=== PATIENT | female | born 1970 | race Caucasian/White ===

== ENCOUNTER → 2018-01-01 | Outpatient (CLI) | payer BC ==
--- NOTE | 2018-01-02 08:21 | XR ---
EXAMINATION TYPE: XR foot complete LT DATE OF EXAM: 01/01/2018 COMPARISON: NONE HISTORY: Pain TECHNIQUE: Three views are submitted. FINDINGS: The osseous structures are intact and there is hypertrophic change and narrowing of the first MTP bev nt. There is no acute fracture or dislocation. IMPRESSION: 1. No acute fracture or dislocation. If symptoms persist, follow-up exam in 7 to 10 days could be ob tained.
== END | disposition home or self-care (01) ==
LOC: RADXRMAIN 16:18
PROVIDERS: ATTEND Family Medicine
DX: M79.672 Pain in left foot (principal)

== ENCOUNTER → 2018-11-25 | Outpatient (CLI) | payer BC ==
--- NOTE | 2018-11-25 08:15 | US ---
EXAMINATION TYPE: US gallbladder DATE OF EXAM: 11/25/2018 COMPARISON: NONE CLINICAL HISTORY: 48-year-old female R10.11 RUQ Abdominal Pain. 3 episodes of abdomen/back pain and n ausea in the past month, patient states symptoms only occur in the afternoon TECHNIQUE: Multiple sonographic images of the right upper quadrant are obtained. FINDINGS: EXAM MEASUREMENTS: Liver Length: 15.7 cm Gallbladder Wall: 0.2 cm CBD: 0.4 cm Right Kidney: 10.0 x 3.9 x 4.9 cm Pancreas: visualized portions wnl, tail and head limited by overlying midline bowel gas Liver: 1.0cm cystic area seen, either a small liver cyst vs. exophytic right kidney cyst . Otherwis e, no focal liver lesion. Gallbladder: Multiple shadowing calculi partially fill the gallbladder lumen. No abnormal distention , surrounding fluid, or wall thickening. Evidence for sonographic Anglin's sign: no CBD: wnl Right Kidney: 2.6 x 2.2 x 2.6cm cyst mid pole . No hydronephrosis. IMPRESSION: 1. Cholelithiasis. No ancillary findings of acute cholecystitis at this time. 2. No biliary ductal dilatation.
== END | disposition home or self-care (01) ==
LOC: RADUSWWP 07:04
PROVIDERS: ATTEND Family Medicine
DX: K80.20 Calculus of gallbladder without cholecystitis without obstruction (principal)
CPT/HCPCS: 76705

== ENCOUNTER → 2019-03-30 | Outpatient (CLI) | payer BC, OTHER ==
[2019-03-30 11:45] LABS: HCT 40.5 % (34.0-46.0); HGB 13.1 gm/dL (11.4-16.0); MCH 30.8 pg (25.0-35.0); MCHC 32.4 g/dL (31.0-37.0); MCV 95.2 fL (80.0-100.0); Mean Platelet Volume 8.7; Platelet Count 200 k/uL (150-450); RBC 4.25 m/uL (3.80-5.40); RDW 14.7 % (11.5-15.5); WBC 6.2 k/uL (3.8-10.6)
== END | disposition home or self-care (01) ==
LOC: LABPAT 10:51
PROVIDERS: ATTEND Surgery Plastic and Reconstructive Surgery
DX: Z01.812 Encounter for preprocedural laboratory examination (principal)
CPT/HCPCS: 36415; 85027

== ENCOUNTER 2019-04-02 06:25 | Day surgery (SDC) | payer BC, OTHER ==
[2019-03-29 13:56] VITALS: BMI 25.8
[~2019-04-02 06:25] MED LIST: DEXAMETHASONE SOD PHOSPHATE 10 MG/ML 1 ML VIAL IV ONE; HEPARIN SODIUM,PORCINE 5,000 UNIT/ML 1 ML VIAL SQ ONE; LACTATED RINGERS 1,000 ML IV SCH; MIDAZOLAM 2 MG/2 ML VIAL IV PRN; ONDANSETRON 4 MG/2 ML VIAL IVP ONE
[2019-04-02] MEDS ORDERED: LIDOCAINE 1% 20 ML VIAL (10MG/ML) FOR IV START IV ONE (07:07)
[2019-04-02] MEDS ORDERED: SCOPOLAMINE 1.5MG/72HR PATCH TRANSDERM ONE (07:13)
--- NOTE | 2019-04-02 07:36 | P.GSHP ---
History of Present Illness H&P Date: 04/02/19 CHIEF COMPLAINT: Cholecystitis HISTORY OF PRESENT ILLNESS: The patient is a 48-year-old female who presents with history of epigastric including right upper quadrant abdominal pain. She underwent diagnostic studies for her gallbladder. Separately her clinical picture was consistent with cholecystitis. Now she presents for surgical intervention. PAST MEDICAL HISTORY: Please see list PAST SURGICAL HISTORY: Please see list MEDICATIONS: Please see list ALLERGIES: Please see list SOCIAL HISTORY: Please see list FAMILY HISTORY: Pertinent for gallbladder disease REVIEW OF ORGAN SYSTEMS: CONSTITUTIONAL: No reports of fevers or chills. HEENT: Denies any troubles with the vision or hearing. PHYSICAL EXAM: VITAL SIGNS: Afebrile vital signs stable GENERAL: Well-developed pleasant in no acute distress. HEENT: No scleral icterus. Extraocular movements grossly intact. Moist buccal mucosa. NECK: Supple without lymphadenopathy. CHEST: Unlabored respirations. Equal bilateral excursions. CARDIOVASCULAR: Regular rate regular rhythm rhythm. Distal 2+ pulses. ABDOMEN: Soft, nondistended. Tender along the epigastrium and right upper quadrant. MUSCULOSKELETAL: No clubbing, cyanosis, or edema. NEURO: Cranial nerves II to XII within normal limits. No focal or lateralizing signs. PSYCH: Alert and oriented to person, place and time. SKIN: Well-perfused good skin turgor. ASSESSMENT: 1. Epigastric and right upper quadrant abdominal pain 2. Chronic cholecystitis 3. Symptomatic gallstones. PLAN: 1. Will need a robotic cholecystectomy possible open. Benefits and risks were described. 2. Heparin for DVT prophylaxis 5000 units. 3. Antibiotic prophylaxis. Past Medical History Past Medical History: Asthma Additional Past Medical History / Comment(s): States asthma may have been allergy to pet- no problems now., states occasional gall bladder "attacks" History of Any Multi-Drug Resistant Organisms: None Reported Past Surgical History: Breast Surgery Additional Past Surgical History / Comment(s): Exp lap (endometriosis), breast lumpectomy Past Anesthesia/Blood Transfusion Reactions: Postoperative Nausea & Vomiting (PONV) Past Psychological History: Anxiety, Depression Smoking Status: Never smoker Past Alcohol Use History: None Reported Past Drug Use History: None Reported - Past Family History Mother Family Medical History: No Reported History Medications and Allergies Home Medications Medication Instructions Recorded Confirmed Type Venlafaxine HCl [Effexor XR] 150 mg PO DAILY 03/29/19 04/02/19 History Allergies Allergy/AdvReac Type Severity Reaction Status Date / Time pcn AdvReac Rash/Hives Uncoded 03/29/19 13:32 Surgical - Exam Vital Signs Temp Pulse Resp BP Pulse Ox 98.2 F 75 16 109/71 97 04/02/19 06:55 04/02/19 06:55 04/02/19 06:55 04/02/19 06:55 04/02/19 06:55
[2019-04-02] MEDS ORDERED: INDOCYANINE GREEN 25 MG VIAL IV STA (07:37)
[2019-04-02] MEDS ORDERED: fentaNYL (PF) 50 MCG/ML 2 ML AMP ONE (07:39)
[2019-04-02] MEDS ORDERED: ROCURONIUM BROMIDE 10 MG/ML 10 ML VIAL IV ONE (07:39)
[2019-04-02] MEDS ORDERED: NEOSTIGMINE 1 MG/ML 10 ML VIAL ONE (07:39)
[2019-04-02] MEDS ORDERED: LIDOCAINE 1% INJ 10MG/ML (20 ML MDV) ONE (07:39)
[2019-04-02] MEDS ORDERED: MIDAZOLAM 2 MG/2 ML VIAL ONE (07:39)
[2019-04-02] MEDS ORDERED: INDOCYANINE GREEN 25 MG VIAL IV ONE (07:39)
[2019-04-02] MEDS ORDERED: PROPOFOL 10 MG/ML 20 ML VIAL IV ONE (07:39)
[2019-04-02] MEDS ORDERED: GLYCOPYRROLATE 0.2 MG/ML 2 ML VIAL ONE (07:39)
[2019-04-02 07:48] LABS: ALT 26 U/L (9-52); AST 22 U/L (14-36); African American GFR (CKD) >90 (>60 ml/min/1.73 sqM); Albumin 4.5 g/dL (3.5-5.0); Alkaline Phosphatase 58 U/L (38-126); Anion Gap 8 mmol/L; Blood Urea Nitrogen 14 mg/dL (7-17); Calcium 9.5 mg/dL (8.4-10.2); Carbon Dioxide 27 mmol/L (22-30); Chloride 107 mmol/L (98-107); Glucose 97 mg/dL (74-99); Sodium 142 mmol/L (137-145); Total Bilirubin 0.4 mg/dL (0.2-1.3); Total Protein 7.5 g/dL (6.3-8.2)
[2019-04-02] MEDS ORDERED: LIDOCAINE 1%-EPI 1:100,000 30 ML VIAL SQ ONE ×2 (07:56→08:15)
[2019-04-02] MEDS ORDERED: DEXAMETHASONE SOD PHOSPHATE 10 MG/ML 1 ML VIAL IM PRN (08:56)
--- NOTE | 2019-04-02 09:02 | P.OP ---
Date of Procedure: 04/02/19 Description of Procedure: SURGEON: SHANTEL LEON MD PREOPERATIVE DIAGNOSES: 1. Right upper quadrant abdominal pain 2. Chronic cholecystitis 3. Gallstones 4. Depressive disorder POSTOPERATIVE DIAGNOSES: 1. Right upper quadrant abdominal pain 2. Chronic cholecystitis 3. Gallstones 4. Depressive disorder OPERATION: Robotic-assisted da Kathy Xi laparoscopic cholecystectomy, multiport with FIREFLY ESTIMATED BLOOD LOSS: 5 mL. SPECIMENS REMOVED: Gallbladder. COMPLICATIONS: None. OPERATIVE FINDINGS: 1. Chronic cholecystitis 2. Bulbous cystic appearance of infundibulum and cystic duct identified via firefly 3. Console time 7 minutes INDICATIONS: The patient is a 48-year-old female who presents with cholelcystitis. Surgical intervention with a laparoscopic cholecystectomy was described at length including injury to the biliary tree, bleeding, infection, need for further surgery. Informed consent was obtained. Robotic assisted laparoscopic approach was described. Benefits and risks of the procedure including but not limited to bleeding, infection, injury to the biliary tree was described. Informed consent was obtained. DESCRIPTION OF PROCEDURE: Patient was brought to the operating room, placed in supine position. After general induction, the abdomen had been prepped and draped in standard sterile fashion. The robotic da Kathy XI system was primed. After a timeout protocol was performed, the patient had been prepped and draped in standard sterile fashion. The patient was injected with indocyanine green. A 5 mm 0 degrees laparoscopic trocar entry was performed along the left upper quadrant. The abdomen insufflated to 15 mmHg pressure which was tolerated well. Diagnostic laparoscopy demonstrated no injury to bowel viscera or mesentery. The liver surface was unremarkable. Next, two 8 mm robotic ports were placed along the right upper abdomen. The camera 8-mm port was maintained along the epigastrium. Another 8 mm port was placed along the left upper abdominal wall after exchanging the 5 mm port. Please note that the ports were placed at least 10 to 15 cm away from the target anatomy of the gallbladder. The robot was docked along the left lateral abdomen. The patient was repositioned in reverse Trendelenburg position. Using a grasper for arm 3, a grasper for arm 4, including hook cautery for arm 1, the robotic system was docked and primed as described. Instruments were interchanged by the clinical assistant professor including hook cautery, Bovie cautery and clip appliers. I had sat at the console. The gallbladder fundus was retracted over the dome of the liver. Initial attention was brought to the infundibulum which was gently retracted in the inferior lateral approach. Using a grasper, the cystic duct including the cystic artery was carefully skeletonized. FIREFLY was used to identify the cystic artery and cystic structures. A critical view of safety was obtained. Large PLASTIC clips were used throughout the entire case. Using a clip secondary special education teacher 2 clips were placed proximally, and 1 clip was placed between the infundibulum and cystic duct and divided using cautery. Next, the cystic artery was similarly clipped and cauterized. Electro-Bovie cautery was used to remove the gallbladder from the hepatic fossa. Hemostasis was checked and found to be adequate. The robot was undocked. I re-scrubbed into the case. Using a 10 mm Endo Catch bag via the left upper quadrant incision, the specimen was removed from the abdominal cavity. All pneumoperitoneum instruments were evacuated from the abdominal cavity. The incisions were reapproximated using 4-0 Monocryl in an interrupted subcuticular fashion. Fascial defects were less than 8 mm in size. Please note along the trocar sites, local anesthetic was placed as a field block prior to insertion of all instruments. Liquid glue was applied to the skin. At the end of the procedure needle, sponge, and instrument count had been verified correct by the solar installer technician. The patient was transferred to postanesthesia care unit in stable condition. Intraoperative films were shared with the patient's family who were very pleased with the level of care. Plan - Discharge Summary Discharge Rx Participant: Yes New Discharge Prescriptions: New Ibuprofen [Motrin] 600 mg PO Q8HR PRN #30 tab PRN Reason: Pain Acetaminophen [Tylenol] 325 mg PO Q4H #30 tab No Action Venlafaxine HCl [Effexor XR] 150 mg PO DAILY Discharge Medication List Venlafaxine HCl [Effexor XR] 150 mg PO DAILY 03/29/19 [History] Acetaminophen [Tylenol] 325 mg PO Q4H #30 tab 04/02/19 [Rx] Ibuprofen [Motrin] 600 mg PO Q8HR PRN #30 tab 04/02/19 [Rx] Follow up Appointment(s)/Referral(s): Shantel Leon MD [STAFF PHYSICIAN] - 04/06/19 Patient Instructions/Handouts: *Surgery [facility] - Scopalamine Patch Instructions, Low Fat Diet (GEN), Laparoscopic Cholecystectomy (GEN) Activity/Diet/Wound Care/Special Instructions: No lifting over 10 pounds and 10 days until 04/12/2019. May shower. No bath tub soaks until 04/12/2019. Low-fat diet advised over the weekend. Follow up as directed. May also take Aleve for pain. Discharge Disposition: HOME SELF-CARE
[2019-04-02] MEDS ORDERED: diphenhydrAMINE 50 MG/ML 1 ML VIAL IVP ONE (09:03)
[2019-04-02] MEDS: HYDROmorphone 0.5 MG/0.5 ML SYRINGE IVP PRN ×4 (09:03→09:39)
[2019-04-02 09:09] VITALS: TEMP 97.2
[2019-04-02 09:48] VITALS: RESP 17
[2019-04-02] MEDS ORDERED: HYDROcodone/APAP 7.5-325MG 1 EACH TAB PO ONE (09:57)
[2019-04-02 10:01] VITALS: BP 104/70; PULSE 83
== END 2019-04-02 10:54 | disposition home or self-care (01) ==
LOC: OR 06:25
PROVIDERS: ATTEND Surgery Plastic and Reconstructive Surgery
DX: K80.10 Calculus of gallbladder with chronic cholecystitis without obstruction (principal); F32.9 Major depressive disorder, single episode, unspecified; J45.909 Unspecified asthma, uncomplicated; F41.9 Anxiety disorder, unspecified; Z98.890 Other specified postprocedural states; Z88.0 Allergy status to penicillin; Z79.899 Other long term (current) drug therapy
CPT/HCPCS: 47562; 81025; 88304; 80053; J2250; J1200; J1644; J1100; J2710; J0690; J2405; J2001; J3010; J2704; J1170

== ENCOUNTER 2020-02-09 15:01 | Emergency (ER) | payer BC, OTHER ==
[2020-02-09 15:12] VITALS: RESP 18
[2020-02-09] MEDS ORDERED: HYDROcodone/APAP 5-325MG 1 EACH TAB PO STA (15:42)
[2020-02-09] MEDS ORDERED: DIPH,PERTUS(ACELL)TETVAC-LF 0.5 ML VIAL IM ONE (15:42)
[2020-02-09] MEDS ORDERED: GELATIN SPONGE,ABSORB (SMALL) 1 EACH SPONGE TOPICAL STA (15:42)
--- NOTE | 2020-02-09 16:00 | ED ---
General Adult HPI - General Chief complaint: Wound/Laceration Stated complaint: Finger injury Time Seen by Provider: 02/09/20 15:23 Source: patient, EMS, RN notes reviewed Mode of arrival: EMS Limitations: no limitations - History of Present Illness Initial comments: 49-year-old female presents to the emergency department for laceration of the right fourth digit. 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 Patient denies any other injuries. Patient is up-to-date on tetanus.Patient has no other complaints at this time including shortness of breath, chest pain, abdominal pain, nausea or vomiting, headache, or visual changes. - Related Data Home Medications Medication Instructions Recorded Confirmed Venlafaxine HCl [Effexor XR] 150 mg PO DAILY 03/29/19 04/02/19 Previous Rx's Medication Instructions Recorded Acetaminophen [Tylenol] 325 mg PO Q4H #30 tab 04/02/19 Ibuprofen [Motrin] 600 mg PO Q8HR PRN #30 tab 04/02/19 Allergies Allergy/AdvReac Type Severity Reaction Status Date / Time Penicillins Allergy Rash/Hives Verified 04/02/19 09:49 Review of Systems ROS Statement: Those systems with pertinent positive or pertinent negative responses have been documented in the HPI. ROS Other: All systems not noted in ROS Statement are negative. Past Medical History Past Medical History: Asthma Additional Past Medical History / Comment(s): States asthma may have been allergy to pet- no problems now., states occasional gall bladder "attacks" History of Any Multi-Drug Resistant Organisms: None Reported Past Surgical History: Breast Surgery, Cholecystectomy Additional Past Surgical History / Comment(s): Exp lap (endometriosis), breast lumpectomy Past Anesthesia/Blood Transfusion Reactions: Postoperative Nausea & Vomiting (PONV) Past Psychological History: Anxiety, Depression Smoking Status: Never smoker Past Alcohol Use History: None Reported Past Drug Use History: None Reported - Past Family History Mother Family Medical History: No Reported History General Exam Limitations: no limitations General appearance: alert, in no apparent distress Head exam: Present: atraumatic, normocephalic, normal inspection Eye exam: Present: normal appearance, PERRL, EOMI. Absent: scleral icterus, conjunctival injection, periorbital swelling ENT exam: Present: normal exam, mucous membranes moist Neck exam: Present: normal inspection, full ROM. Absent: tenderness, meningismus, lymphadenopathy Respiratory exam: Present: normal lung sounds bilaterally. Absent: respiratory distress, wheezes, rales, rhonchi, stridor Cardiovascular Exam: Present: regular rate, normal rhythm, normal heart sounds. Absent: systolic murmur, diastolic murmur, rubs, gallop, clicks Extremities exam: Present: full ROM (4 range of motion of the right fourth digit), normal capillary refill (Capillary refill is 2 seconds, radial pulse 2+ in the right upper extremity.), other (Patient has a laceration avulsion type injury to the fingertip of the right fourth digit.). Absent: tenderness, pedal edema, joint swelling, calf tenderness Neurological exam: Present: alert Course Vital Signs 02/09/20 15:08 Temperature 99.0 F Pulse Rate 79 Respiratory 18 Rate Blood Pressure 136/76 O2 Sat by Pulse 100 Oximetry Medical Decision Making - Medical Decision Making X-ray of the right fourth digit showed a normal exam. I do not see any bone involvement. Area was cleaned with saline pressure irrigation. Gelfoam was applied. Steri-Strips were applied to this to keep it in place. Patient will follow up with primary care in 1-2 days for a recheck. She'll return here for any worsening symptoms. Disposition Clinical Impression: Avulsion of skin of finger Disposition: HOME SELF-CARE Condition: Good Instructions (If sedation given, give patient instructions): Laceration (ED) Additional Instructions: Please soak Gelfoam if it does not fall off the next 2-3 days. Please follow-up with primary care in 1-2 days for recheck. Return if you have any other worsening symptoms. Is patient prescribed a controlled substance at d/c from ED?: No Referrals: Bandar Fischer DO [Primary Care Provider] - 1-2 days Time of Disposition: 16:15
--- NOTE | 2020-02-09 16:06 | XR ---
Fourth digit right hand HISTORY: Laceration 3 views of the fourth digit right hand Bone mineralization, joint spaces and alignment are maintained. No radiographic foreign body. IMPRESSION: Normal fourth digit.
[2020-02-09 16:29] VITALS: BP 140/77; PULSE 75; TEMP 97.5
== END 2020-02-09 16:29 | disposition home or self-care (01) ==
LOC: EC 15:01
DX: S61.214A Laceration without foreign body of right ring finger without damage to nail, initial encounter (principal); F32.9 Major depressive disorder, single episode, unspecified; Z79.899 Other long term (current) drug therapy; Z88.0 Allergy status to penicillin; Z23 Encounter for immunization; W27.4XXA Contact with kitchen utensil, initial encounter; Y93.G3 Activity, cooking and baking; Y92.009 Unspecified place in unspecified non-institutional (private) residence as the place of occurrence of the external cause
CPT/HCPCS: 90471; 90715; 99283

== ENCOUNTER → 2022-01-11 | Outpatient (CLI) | payer OTHER ==
--- NOTE | 2022-01-15 15:01 | MM ---
Reason for Exam: Screening (asymptomatic). Last mammogram was performed 8 year(s) and 7 month(s) ago. Patient History: Menarche at age 13. First Full-Term at age 36. Late child-bearing (after 30). Hormonal Contraceptives for 3 years from age 25 until age 28. Maternal grandmother had breast cancer. Film Views: Bilateral CC views were taken. Bilateral MLO views were taken. Prior Study Comparison: 10/02/2009 Bilateral Screening Mammogram, [facility]. 10/29/2011 Bilateral Screening Mammogram, [facility]. 06/08/2013 Bilateral Screening Mammogram, [facility]. Tissue Density: The breast tissue is heterogeneously dense. This may lower the sensitivity of mammography. Findings: Analyzed By CAD. Central posterior focal asymmetries in the right breast. New oval 7mm nodule 8 o'clock left breast. Overall Assessment: Incomplete: need additional imaging evaluation, BI-RAD 0 Management: Special View Mammogram of both breasts. [facility] will attempt to contact patient to return for supplemental views.
== END | disposition home or self-care (01) ==
LOC: RADMAMWWP 08:27
PROVIDERS: ATTEND Family Medicine
DX: Z12.31 Encounter for screening mammogram for malignant neoplasm of breast (principal)
CPT/HCPCS: 77063; 77067

== ENCOUNTER → 2022-01-24 | Outpatient (CLI) | payer OTHER ==
--- NOTE | 2022-01-30 17:06 | USB ---
Reason for Exam: Additional evaluation requested from abnormal screening. Last screening mammogram was performed less than 1 month ago. Patient History: Menarche at age 13. First Full-Term at age 36. Late child-bearing (after 30). Hormonal Contraceptives for 3 years from age 25 until age 28. Maternal grandmother had breast cancer at or over age 50. Risk Values: Desire 5 year model risk: 1.3%. NCI Lifetime model risk: 12.1%. Prior Study Comparison: 10/29/2011 Bilateral Screening Mammogram, [facility]. 06/08/2013 Bilateral Screening Mammogram, [facility]. 01/11/2022 Bilateral MG 3D screening mammo w/cad, [facility]. Tissue Density: The breast tissue is heterogeneously dense. This may lower the sensitivity of mammography. MANY MOLES AND SKIN TAGS...OVER BOTH BREASTS AND AXILLA. Findings: Mammogram No persistent suspicious spiculated or lobular masses, clusters of microcalcifications, architectural distortion are evident on the right compression views. Medial and lateral views bilaterally appear unremarkable.. Findings: There is a 0.6 x 0.6 x 0.5 cm hypoechoic area with internal echogenicity which appears taller than wide. This is at the 9:00 position zone A. Ultrasound-guided core biopsy is recommended. Overall Assessment: Suspicious, BI-RAD 4 Assessment: MG 3D work up w/cad [facility] - Bilateral: Probably benign, BI-RAD 3 - Right. US breast workup limited LT - Bilateral: Suspicious, BI-RAD 4 - Left. Management: Ultrasound Core Biopsy of the left breast. A clinical breast exam by your physician is recommended on an annual basis and results should be correlated with mammographic findings. Results were given to the patient verbally at the time of exam. Electronically signed and approved by: Jack Soto D.O. Radiologis
== END | disposition home or self-care (01) ==
LOC: RADMAMWWP 08:53
PROVIDERS: ATTEND Family Medicine
DX: R92.8 Other abnormal and inconclusive findings on diagnostic imaging of breast (principal)
CPT/HCPCS: 77062; 77066

== ENCOUNTER → 2022-02-13 | Day surgery (SDC) | payer OTHER ==
--- NOTE | 2022-02-21 11:55 | USB ---
Reason for Exam: Post Procedure Mammogram. Last screening mammogram was performed 1 month(s) ago. Patient History: Menarche at age 13. First Full-Term at age 36. Late child-bearing (after 30). Hormonal Contraceptives for 3 years from age 25 until age 28. Maternal grandmother had breast cancer at or over age 50. Risk Values: Desire 5 year model risk: 1.3%. NCI Lifetime model risk: 12.1%. Prior Study Comparison: 06/08/2013 Bilateral Screening Mammogram, [facility]. 01/11/2022 Bilateral MG 3D screening mammo w/cad, [facility]. 01/24/2022 Bilateral MG 3D work up w/cad [facility], [facility]. Tissue Density: Left: The breast tissue is heterogeneously dense. This may lower the sensitivity of mammography. Pathology Description: Location: 9 o'clock, upper inner quadrant. Marker Left Behind. Needle Type: Celero Cores: 2 Gauge: 12 Complications: Other After procedure patient felt nauseous and dizzy, she was given ice pack for neck and offered food and drink but she declined. Tech did not let patient leave until she felt stable. The procedure of ultrasound guided core biopsy was explained to the patient. Benefits, alternatives, and risks were discussed. An informed consent was then obtained. The patient was placed in supine positioning for imaging and for the procedure. Preprocedure ultrasound redemonstrates an oval 8 mm heterogeneous slightly hypoechoic lesion at 9:00 position in the left breast. The overlying skin was prepped and draped in usual sterile fashion. Lidocaine is used as anesthetic into the skin and subcutaneous tissue up to area of concern in the left breast. Under ultrasound guidance, a vacuum assisted biopsy gun device was used to obtain 2 core samples. Following this, a biopsy clip was left at level of the lesion. Lesion was not well seen after sampling. The patient tolerated the procedure well without any immediate complication. The patient was kept in the radiology department for short stay after the procedure and then discharged home in stable condition. Post procedure mammogram shows successful deployment of clip along the anterior aspect of the suspicious lesion on mammogram. Impression: Successful, uncomplicated ultrasound guided core biopsy of area of concern in the left breast, full pathology results to follow. Low to intermediate index of suspicion. Suspect debris filled cyst. Pathology Results: Result: Benign, Fibroadenoma. LEFT BREAST, NINE O'CLOCK, ULTRASOUND GUIDED CORE BIOPSY: Fibroadenoma. Overall Assessment: Benign Assessment: MG diagnostic mammo LT wo CAD. - Left: Benign, BI-RAD 2. Management: Diagnostic Mammogram of the left breast in 6 months. Electronically signed and approved by: Saul Powers M.D.
== END ==
LOC: RADUSWWP 10:13
PROVIDERS: ATTEND Student in an Organized Health Care Education/Training Program
DX: D24.2 Benign neoplasm of left breast (principal)
CPT/HCPCS: 88305; 77065; 19083; A4648

== ENCOUNTER → 2022-09-11 | Outpatient (CLI) | payer OTHER ==
--- NOTE | 2022-09-11 16:08 | MM ---
Reason for Exam: Follow-up at short interval from prior study. Last screening mammogram was performed 8 month(s) ago. Patient History: Menarche at age 13. First Full-Term at age 36. Late child-bearing (after 30). Hormonal Contraceptives for 3 years from age 25 until age 28. 02/13/2022, Benign US biopsy breast VAD LT on the left side. Maternal grandmother had breast cancer at or over age 50. Risk Values: Desire 5 year model risk: 1.6%. NCI Lifetime model risk: 14.2%. Prior Study Comparison: 01/11/2022 Bilateral MG 3D screening mammo w/cad, [facility]. 01/24/2022 Bilateral MG 3D work up w/cad [facility], [facility]. 02/13/2022 Left MG diagnostic mammo LT wo CAD., [facility]. Tissue Density: Left: The breast tissue is heterogeneously dense. This may lower the sensitivity of mammography. Findings: Analyzed By CAD. The core biopsy markers within the left breast. Nodular density at the level of the core marker appears stable. Adjacent is a similar nodular density not identified previously. Additional workup with rolled views and ultrasound is recommended. Overall Assessment: Incomplete: need additional imaging evaluation, BI-RAD 0 Management: Diagnostic Breast Ultrasound of the left breast. A clinical breast exam by your physician is recommended on an annual basis and results should be correlated with mammographic findings. This exam should not preclude additional follow-up of suspicious palpable abnormalities. Results were given to the patient verbally at the time of exam. Electronically signed and approved by: Jack Soto D.O. Radiologis
--- NOTE | 2022-09-11 16:11 | USB ---
Reason for Exam: Additional evaluation requested from prior study. Patient History: Menarche at age 13. First Full-Term at age 36. Late child-bearing (after 30). Hormonal Contraceptives for 3 years from age 25 until age 28. 02/13/2022, Benign US biopsy breast VAD LT on the left side. Maternal grandmother had breast cancer at or over age 50. Risk Values: Desire 5 year model risk: 1.6%. NCI Lifetime model risk: 14.2%. Technique: Method: Targeted. Prior Study Comparison: 01/11/2022 Bilateral MG 3D screening mammo w/cad, [facility]. 01/24/2022 Bilateral MG 3D work up w/cad [facility], [facility]. 02/13/2022 Left MG diagnostic mammo LT wo CAD., [facility]. Findings: The upper inner quadrant of the left breast and the retroareolar of the left breast were scanned. Patient's nodular density which appears to be the previous biopsy site is again identified. Directly adjacent is a hypoechoic area which contains echogenic foci. This appears to be the patient's [employer]drom[employer]. Overall Assessment: Benign, BI-RAD 2 Management: Screening Mammogram of both breasts in 6 months. A clinical breast exam by your physician is recommended on an annual basis and results should be correlated with mammographic findings. This exam should not preclude additional follow-up of suspicious palpable abnormalities. Results were given to the patient verbally at the time of exam. Electronically signed and approved by: Jack Soto D.O. Radiologis
== END | disposition home or self-care (01) ==
LOC: RADMAMWWP 15:04
PROVIDERS: ATTEND Family Medicine
DX: D24.2 Benign neoplasm of left breast (principal); Z80.3 Family history of malignant neoplasm of breast
CPT/HCPCS: 77065

== ENCOUNTER → 2024-02-11 | Outpatient (CLI) | payer BC, OTHER ==
--- NOTE | 2024-02-12 14:01 | MM ---
Reason for Exam: Screening (asymptomatic). Last mammogram was performed 2 year(s) and 1 month(s) ago. Patient History: Menarche at age 13. First Full-Term at age 36. Late child-bearing (after 31). Postmenopausal. Hormonal Contraceptives for 3 years from age 25 until age 28. 02/13/2022, Benign US biopsy breast VAD LT on the left side. Maternal grandmother had breast cancer at or over age 50. Last menstrual period: 01/28/2024 Risk Values: Desire 5 year model risk: 1.7%. NCI Lifetime model risk: 13.7%. Prior Study Comparison: 06/08/2013 Bilateral Screening Mammogram, [facility]. 01/11/2022 Bilateral MG 3D screening mammo w/cad, [facility]. 01/24/2022 Bilateral MG 3D work up w/cad [facility], [facility]. 02/13/2022 Left MG diagnostic mammo LT wo CAD., [facility]. 09/11/2022 Left MG diagnostic mammo LT w CAD, [facility]. Tissue Density: The breasts are heterogeneously dense, which may obscure small masses. Findings: Analyzed By CAD. There is no suspicious group of microcalcifications or new suspicious mass in either breast. Overall Assessment: Benign, BI-RAD 2 Management: Screening Mammogram of both breasts in 1 year. . Patient should continue monthly self-breast exams. A clinical breast exam by your physician is recommended on an annual basis. This exam should not preclude additional follow-up of suspicious palpable abnormalities. Note on Desire scores and lifetime risk: 1. A Desire score greater than 3% is considered moderate risk. If this is the case, consider specialist referral to assess eligibility for a risk reducing agent. 2. If overall lifetime risk for the development of breast cancer is 20% or higher, the patient may qualify for future screening with alternating mammogram and breast MRI. Electronically signed and approved by: Kashif Voss M.D. Radiologis
== END | disposition home or self-care (01) ==
LOC: RADMAMWWP 08:01
PROVIDERS: ATTEND Family Medicine
DX: Z12.31 Encounter for screening mammogram for malignant neoplasm of breast (principal); Z78.0 Asymptomatic menopausal state; Z80.3 Family history of malignant neoplasm of breast
CPT/HCPCS: 77067

== ENCOUNTER 2024-04-06 06:52 | Emergency (ER) | payer BC, OTHER ==
[2024-04-06] MEDS ORDERED: HYDROcodone/APAP 5-325MG 1 EACH TAB ONE (07:30)
[2024-04-06] MEDS ORDERED: traMADol 50 MG STARTER PACK 3 TAB BTL ONE (08:25)
--- NOTE | 2024-05-12 15:02 | XR ---
Patient Latoya Georges ID [id number] Order # EXAMINATION TYPE: XR lumbar spine 2 or 3V DATE OF EXAM: 04/06/2024 COMPARISON: No comparison available on downtime PACS. HISTORY: Low back pain TECHNIQUE: 3 view lumbar spine FINDINGS: There are 5 lumbar-type vertebral bodies. Pedicles are intact. Disc heights are preserved. Vertebral body heights are preserved. Alignment is preserved. IMPRESSION: 1. Normal three-view lumbar spine
== END 2024-04-06 08:28 | disposition home or self-care (01) ==
LOC: EC 06:52
DX: M54.50 Low back pain, unspecified (principal); X50.1XXA Overexertion from prolonged static or awkward postures, initial encounter
CPT/HCPCS: 72100; 99283